=== PATIENT | female | born 1950 | race Caucasian/White ===

== ENCOUNTER 2022-01-09 21:06 | Inpatient (IN) | payer MEDICARE, OTHER ==
[~2022-01-09] VITALS: Ht 165.1 cm; Wt 49.9 kg
--- NOTE | 2022-01-09 21:48 | NUR ---
S/p fall in [employer], denies hitting head. Not on any blood thinner. Pt c/o left thigh pain and unable to put weight on her left foot. Seen and examined by Dr. Mckeon.
[2022-01-09] MEDS ORDERED: MORPHINE SULFATE 2 MG/1 ML DISP.SYRIN ONE ×2 (21:57→22:57)
[2022-01-09] MEDS ORDERED: MORPHINE SULFATE 2 MG/1 ML DISP.SYRIN IM ONE (22:00)
--- NOTE | 2022-01-09 22:28 | NUR ---
Paged Epic panel, waiting for Dr Yefri Arrieta to call back.
[2022-01-09 22:29] LABS: HEMATOCRIT 36.5 % (31.2-41.9); MEAN CORPUSCULAR HEMOGLOBIN 31.7 uug (24.7-32.8); MEAN CORPUSCULAR VOLUME 93.3 fL (75.5-95.3); PLATELET COUNT (AUTO) 341 K/uL (179-408)
[2022-01-09 22:36] LABS: CREATININE 0.9 mg/dL (0.6-1.3); POTASSIUM 4.1 mmol/L (3.5-5.1)
--- NOTE | 2022-01-09 22:36 | NUR ---
called lab to save the blue tube for PT/PTT. Pt will be admitted. Will ask Dr. Borden to add the orders.
[2022-01-09 22:42] LABS: BILIRUBIN,DIRECT 0.1 mg/dL (0.0-0.2); BILIRUBIN,TOTAL 0.5 mg/dL (0.2-1.0); TOTAL PROTEIN, SERUM 7.3 g/dL (6.4-8.2)
[2022-01-09] MEDS ORDERED: ONDANSETRON 4 MG/2 ML VIAL ONE (22:57)
[2022-01-09] MEDS ORDERED: MORPHINE SULFATE 2 MG/1 ML DISP.SYRIN IV ONE (23:00)
[2022-01-09] MEDS ORDERED: ONDANSETRON 4 MG/2 ML VIAL IV ONE (23:00)
[2022-01-10] MEDS ORDERED: MAGNESIUM HYDROXIDE 30 ML LIQUID UDC PO PRN (00:45)
[2022-01-10] MEDS ORDERED: ONDANSETRON 4 MG/2 ML VIAL IV PRN (00:45)
[2022-01-10] MEDS ORDERED: ACETAMINOPHEN 325 MG TABLET PO PRN (00:45)
[2022-01-10] MEDS ORDERED: HYDROMORPHONE 1 MG/1 ML DISP.SYRIN IV PRN (00:45)
[2022-01-10] MEDS ORDERED: IV NS 1000 ML 1,000 ML IV PRN (00:45)
[2022-01-10] MEDS ORDERED: REMEDY ESSENTIAL ZINC PASTE 113 GM TP PRN (00:45)
--- NOTE | 2022-01-10 01:09 | NUR ---
Pt has left hip fracture and needs a guerrero catheter per Dr. Mckeon.
[2022-01-10] MEDS ORDERED: ONDANSETRON 4 MG/2 ML VIAL ONE ×2 (02:01→10:00)
[2022-01-10] MEDS ORDERED: HYDROMORPHONE 1 MG/1 ML DISP.SYRIN ONE (02:01)
--- NOTE | 2022-01-10 05:03 | NUR ---
report given to Wendi at the floor.
--- NOTE | 2022-01-10 05:45 | NUR ---
Received patient from ER new admit per shaji, came at ER due to fall with DX s/p fall, Left Hip Fracture, not in respiratory distress, on room air, alert and oriented x3-4, routine admission care done. Complaint of pain at left Hip at tolerable level at this time 08/01 as stated by the patient. Transferred to bed and made comfortable. Left leg elevated with 1 pillow. Instructed on NPO, to be seen by ortho doctor for consultation
[2022-01-10] MEDS: HYDROMORPHONE 1 MG/1 ML DISP.SYRIN IV PRN ×3 (06:07→14:24)
[2022-01-10 06:33] VITALS: BP 131/47
[2022-01-10] MEDS ORDERED: KETOROLAC TROMETHAMINE 30 MG INJ ONE (10:00)
[2022-01-10] MEDS ORDERED: DEXAMETHASONE SOD PHOSPHATE 4 MG INJ ONE (10:00)
[2022-01-10] MEDS ORDERED: LIDOCAINE-MPF 2% 5 ML VIAL ONE (10:00)
[2022-01-10] MEDS ORDERED: PROPOFOL 200 MG/20 ML BOTTLE ONE (10:00)
[2022-01-10] MEDS ORDERED: GLYCOPYRROLATE 0.2 MG/ML VIAL ONE (10:00)
[2022-01-10] MEDS ORDERED: CEFAZOLIN 1 G VIAL ONE (10:00)
[2022-01-10] MEDS ORDERED: NEOSTIGMINE METHYLSULFATE 10 MG/10 ML VIAL ONE (10:00)
--- NOTE | 2022-01-10 11:36 | NUR ---
Pt is a/o x 3, no complaint of pain at this time. administered prn pain medication at [address] Crawford spoke with pt's daughter and pt and family are agreeable to having surgery done here. Surgery is scheduled for 1500 for left hip bipolar replacement. Procedure and blood consent signed by pt. Pt has been NPO status. IV patent and intact. Preop checklist completed, cardio cleared, pending echocardiogram. Comfort measures provided, call light within reach, will continue to monitor.
[2022-01-10 13:00] VITALS: BP 110/47
[2022-01-10] MEDS ORDERED: VANCOMYCIN 1000 MG VIAL ONE (16:04)
[2022-01-10 16:31] VITALS: BP 106/62
--- NOTE | 2022-01-10 16:45 | NUR ---
pt taken to OR for procedure. All personal belongings left inside room in drawer. guerrero emptied prior to transfer. 500cc yellow urine emptied.
[2022-01-10] MEDS ORDERED: ROCURONIUM BROMIDE 50 MG/5 ML VIAL ONE (16:59)
[2022-01-10] MEDS ORDERED: HYDROMORPHONE 2 MG/1 ML DISP.SYRIN ONE (16:59)
[2022-01-10] MEDS ORDERED: BUPIVACAINE/EPI PF 0.5% 10 ML VIAL ONE (18:18)
--- NOTE | 2022-01-10 20:20 | NUR ---
Pt came back from OR, left hip bipolar replacement. original dressing intact with steristrip, aquacel and tegaderm, abduction pillow in place. Weight-baring status pending on pt eval in the morning and Dr. Crawford's orders. Will endorse to follow up with MD in the morning. Pt to resume previous regular diet. medications faxed to pharmacy by OR staff. Pt last vitals 95/38 HR 67 temp 98.9 rr 10 SpO2 97% on room air. Fluids will be started as MD ordered. Will continue to monitor pt.
[2022-01-10] MEDS: POTASSIUM CHLORIDE 20 MEQ in IV D5 1/2 NS 1000 ML 1,000 ML IV PRN (21:00)
--- NOTE | 2022-01-10 22:30 | NUR ---
Assumed care of patient from JAMAR Leon. Received patient in bed. AAOx3-4. in no apparent distress. Denies any pain at this time. Abduction pillow in place. Incentive spirometer provided. Teaching done and states understanding. IV site on left AC intact and patent. IVF infusing. Melendrez catheter intact and draining via gravity. Needs assessed and attended to. Safety measure maintained.
--- NOTE | 2022-01-10 22:33 | NUR ---
Pt is a/o x 4, post op. Pt has been placed on fluids and provided snacks. Endorsed to place pt on heplock when regular diet tolerated and per personal assessment and monitoring as tolerated. placed order for PT eval post op, endorsed to follow up for weight-baring status. Comfort measures provided, call light within reach. Care transferred to Ly ROLDAN.
[2022-01-10] MEDS: MORPHINE SULFATE 2 MG/1 ML DISP.SYRIN IV PRN (23:39)
[2022-01-11] MEDS: CEFAZOLIN 1 G in IV DEXTROSE 5% 50 ML IV SCH ×2 (01:09→09:33)
[2022-01-11] MEDS: MORPHINE SULFATE 2 MG/1 ML DISP.SYRIN IV PRN ×6 (04:13→22:55)
[2022-01-11 05:16] VITALS: BP 100/45
--- NOTE | 2022-01-11 05:31 | NUR ---
In no apparent distress. Morphine 1mg via IV PRN given for complain of pain and effective. No adverse reaction noted from IV therapy. Abduction pillow in place. Melendrez catheter intact and draining via gravity. Needs attended to and met. Safety measure maintained and call light within reached.
[2022-01-11 07:20] LABS: HEMATOCRIT 27.4 % (31.2-41.9); MEAN CORPUSCULAR HEMOGLOBIN 32.2 uug (24.7-32.8); MEAN CORPUSCULAR VOLUME 93.4 fL (75.5-95.3); PLATELET COUNT (AUTO) 238 K/uL (179-408)
[2022-01-11 09:33] LABS: CARBON DIOXIDE 25 mmol/L (21-32); CHLORIDE 103 mmol/L (98-107); CREATININE 0.8 mg/dL (0.6-1.3); GLUCOSE 136 mg/dL (74-106); MAGNESIUM 1.8 mg/dL (1.8-2.4); PHOSPHOROUS 3.8 mg/dL (2.5-4.9); POTASSIUM 4.7 mmol/L (3.5-5.1); UREA NITROGEN, BLOOD 14 mg/dL (7-18)
[2022-01-11] MEDS: BENZOCAINE/MENTH/CETYLPYRD LOZENGE MM PRN ×2 (09:48→16:06)
[2022-01-11 10:35] VITALS: BP 96/61
[2022-01-11 12:00] VITALS: BP 101/49
[2022-01-11] MEDS: POTASSIUM CHLORIDE 20 MEQ in IV D5 1/2 NS 1000 ML 1,000 ML IV PRN (14:40)
[2022-01-11 16:00] VITALS: BP 109/41
[2022-01-11] MEDS: ENOXAPARIN SODIUM 40 MG/0.4 ML DISP.SYRIN SQ SCH (18:23)
[2022-01-11 20:27] VITALS: BP 120/47
[2022-01-12] MEDS: MORPHINE SULFATE 2 MG/1 ML DISP.SYRIN IV PRN ×6 (03:19→21:18)
[2022-01-12] MEDS: POTASSIUM CHLORIDE 20 MEQ in IV D5 1/2 NS 1000 ML 1,000 ML IV PRN (04:15)
[2022-01-12 04:33] VITALS: BP 121/46
[2022-01-12 07:13] LABS: HEMATOCRIT 28.3 % (31.2-41.9); MEAN CORPUSCULAR HEMOGLOBIN 32.8 uug (24.7-32.8); MEAN CORPUSCULAR VOLUME 92.9 fL (75.5-95.3); PLATELET COUNT (AUTO) 235 K/uL (179-408)
[2022-01-12 07:16] LABS: CARBON DIOXIDE 30 mmol/L (21-32); CHLORIDE 103 mmol/L (98-107); CREATININE 0.5 mg/dL (0.6-1.3); GLUCOSE 139 mg/dL (74-106); MAGNESIUM 1.9 mg/dL (1.8-2.4); POTASSIUM 4.2 mmol/L (3.5-5.1); UREA NITROGEN, BLOOD 9 mg/dL (7-18)
[2022-01-12] MEDS: ENOXAPARIN SODIUM 40 MG/0.4 ML DISP.SYRIN SQ SCH (08:39)
[2022-01-12 12:05] VITALS: BP 122/62
[2022-01-12] MEDS: ENSURE ENLIVE (VAN) 240 ML LIQUID PO SCH ×2 (13:18→16:37)
[2022-01-12 16:56] VITALS: BP 118/51
[2022-01-13] MEDS: MORPHINE SULFATE 2 MG/1 ML DISP.SYRIN IV PRN ×2 (02:07→08:59)
[2022-01-13 02:59] VITALS: BP 120/57
[2022-01-13 04:56] VITALS: BP 130/58
[2022-01-13 06:39] LABS: HEMATOCRIT 29.1 % (31.2-41.9); MEAN CORPUSCULAR HEMOGLOBIN 32.1 uug (24.7-32.8); MEAN CORPUSCULAR VOLUME 92.2 fL (75.5-95.3); PLATELET COUNT (AUTO) 249 K/uL (179-408)
[2022-01-13 07:04] LABS: CREATININE 0.6 mg/dL (0.6-1.3); POTASSIUM 3.9 mmol/L (3.5-5.1)
--- NOTE | 2022-01-13 07:15 | NUR ---
PER NOC RN ENDORSEMENT TALBOT CATH WAS DC'D, UPON SHIFT EXCHANGE ROUND, BLADDER IS SOFT AND NON DISTENDED, PATIENT DENIES ANY DISCOMFORT OR BLADDER PAIN, WILL CONTINUE TO MONITOR.
[2022-01-13 07:44] LABS: MAGNESIUM 1.9 mg/dL (1.8-2.4)
[2022-01-13] MEDS: ENOXAPARIN SODIUM 40 MG/0.4 ML DISP.SYRIN SQ SCH (08:55)
[2022-01-13] MEDS: ENSURE ENLIVE (VAN) 240 ML LIQUID PO SCH ×2 (08:58→13:20)
--- NOTE | 2022-01-13 08:59 | NUR ---
Late entry: PULLED MORPHINE 2MG AND WASTED 1mg UNDER [facility] ROMERO [id number], BUT 1MG WAS ADMINISTERED TO YAO CLAROS [id number].
[2022-01-13] MEDS ORDERED: DOCUSATE SODIUM 100 MG CAPSULE PO SCH (09:00)
[2022-01-13] MEDS ORDERED: MIRALAX 17 GM POWD.PACK PO SCH (09:00)
--- NOTE | 2022-01-13 13:01 | NUR ---
MID UPPER BACK, RIGHT SIDE OF SPINAL BONE SKIN SUPERFICIAL LAYER WITH MINIMAL SKIN SCRAPE, NO ACTIVE BLEEDING OR SWELLING NOTED. PATIENT DENIES PAIN. MD MADE AWARE, WOUND CONSULT INITIATED.
--- NOTE | 2022-01-13 14:29 | NUR ---
Discharged patient to [facility]hab as ordered. Belonging list signed. Instruction given, patient was noted with understanding. No distress identified. Incision site intact, no bleeding noted, with original dressing.
--- NOTE | 2022-01-13 14:37 | NUR ---
at 0900H, patient voided without difficulty/discomfort s/p fc removal from the car shifter.
[2022-01-13] MEDS ORDERED: APIX2.5T PO (15:41)
[2022-01-14] MEDS ORDERED: APIXABAN 2.5 MG TABLET PO SCH (09:00)
== END 2022-01-13 14:19 | DRG 522 ==
LOC: ER 21:06 → MEDSURG3 01-10 00:42
PROVIDERS: ADMIT Nurse Practitioner Family; ATTEND Nurse Practitioner Family
PROC: 0SRS0JZ Replacement of Left Hip Joint, Femoral Surface with Synthetic Substitute, Open Approach (ICD-10-PCS; principal; 2022-01-10)
DX: S72.032A Displaced midcervical fracture of left femur, initial encounter for closed fracture (principal); D72.829 Elevated white blood cell count, unspecified; F17.210 Nicotine dependence, cigarettes, uncomplicated; W18.30XA Fall on same level, unspecified, initial encounter; Y93.9 Activity, unspecified; Y92.009 Unspecified place in unspecified non-institutional (private) residence as the place of occurrence of the external cause; R73.9 Hyperglycemia, unspecified; Z20.822 Contact with and (suspected) exposure to COVID-19; Z96.641 Presence of right artificial hip joint
CPT/HCPCS: 36415; 51702; 71045; 72170; 73502; 73551; 83735; 84100; 85025; 85730; 93005; 93307; 97161; A4663; C1776; G0378; J0690; J1100; J1170; J1650; J1885; J2270; J2405; J3370; J3480; J3490; J7040

== ENCOUNTER 2022-01-13 14:55 | Inpatient (IN) | payer MEDICARE, OTHER ==
[~2022-01-13] VITALS: Ht 165.1 cm; Wt 46.3 kg
[2022-01-13] MEDS ORDERED: REMEDY ESSENTIAL ZINC PASTE 113 GM TOP PRN (15:15)
[2022-01-13] MEDS ORDERED: APIX2.5T PO (15:41)
[2022-01-13] MEDS ORDERED: ONDANSETRON ODT 4 MG TAB.RAPDIS SL PRN (15:45)
[2022-01-13] MEDS: DOCUSATE SODIUM 100 MG CAPSULE PO SCH ×2 (17:12→20:23)
[2022-01-13] MEDS: HYDROCODONE/APAP 10-325 MG TABLET PO PRN ×2 (17:14→22:50)
[2022-01-13 17:31] VITALS: BP 110/45
--- NOTE | 2022-01-13 18:21 | NUR ---
PATIENT UNDER ARU, ALERT,OX4, VERBALIZES NEEDS AND FOLLOWS DIRECTIONS. MEDICATED PRN WITH NORCO 10/325MG PER HER PAIN NEEDS/ ORDERED BY MD. AND EFFECTIVE, PATIENT IS CURRENTLY IN BED RESTING COMFORTABLY, ALL SAFETY PRECAUTIONS IN PLACE, CALL LIGHT AT REACH., ROUTINE ROUNDS AND FREQUENT VISUAL CHECKS DONE. ALL NEEDS ANTICIPATED AND MET.
[2022-01-13 20:00] VITALS: BP 121/57
[2022-01-14 04:00] VITALS: BP 108/45
[2022-01-14] MEDS: HYDROCODONE/APAP 10-325 MG TABLET PO PRN ×3 (05:12→17:38)
[2022-01-14 07:54] VITALS: BP 102/40
[2022-01-14] MEDS: APIXABAN 2.5 MG TABLET PO SCH ×2 (08:41→21:32)
[2022-01-14] MEDS: DOCUSATE SODIUM 100 MG CAPSULE PO SCH ×2 (08:42→21:28)
[2022-01-14] MEDS: MIRALAX 17 GM POWD.PACK PO SCH (08:42)
--- NOTE | 2022-01-14 12:00 | NUR ---
Weight bearing status confirmed with Dr. Crawford, order for WBAT noted and carried out, PT department made aware.
--- NOTE | 2022-01-14 12:52 | NUR ---
WOUND CARE CONSULT: PT REFUSED SKIN ASSESSMENT. REVIEWED CHART, NURSING DOCUMENTATION AND PHOTO WHICH INDICATES UPPER/MID BACK AREA OF DISCOLORATION, PRESENT ON ADMISSION, UNKNOWN ETIOLOGY. RECOMMENDATIONS MADE FOR SKIN PROTECTION BASED ON PHOTO AND DISCUSSED WITH NURSING STAFF. WILL SEE PT PT CONDITION PERMITS. MD IN AGREEMENT WITH PLAN OF CARE.
[2022-01-14 15:22] VITALS: BP 105/49
[2022-01-14 20:00] VITALS: BP 114/47
[2022-01-15] MEDS: HYDROCODONE/APAP 10-325 MG TABLET PO PRN ×4 (00:12→20:39)
[2022-01-15 04:00] VITALS: BP 115/52
[2022-01-15 08:04] VITALS: BP 106/51
[2022-01-15] MEDS: DOCUSATE SODIUM 100 MG CAPSULE PO SCH ×2 (08:35→21:56)
[2022-01-15] MEDS: MIRALAX 17 GM POWD.PACK PO SCH (08:35)
[2022-01-15] MEDS: MAGNESIUM HYDROXIDE 30 ML LIQUID UDC PO PRN (08:43)
[2022-01-15] MEDS: APIXABAN 2.5 MG TABLET PO SCH ×2 (08:49→21:58)
--- NOTE | 2022-01-15 14:01 | NUR ---
INTERDISCIPLINARY TEAM CONFERENCE
[2022-01-15] MEDS: PROTEIN SUPPLEMENT (PROSTAT) 30 ML LIQUID PO SCH (14:59)
[2022-01-15] MEDS: GLUCERNA SHAKE 237 ML CAN PO SCH ×2 (14:59→16:58)
[2022-01-15 16:03] VITALS: BP 111/53
[2022-01-15 20:00] VITALS: BP 106/43
[2022-01-16] MEDS: HYDROCODONE/APAP 10-325 MG TABLET PO PRN ×2 (02:32→08:25)
--- NOTE | 2022-01-16 02:47 | NUR ---
MEDICATED WITH NORCO ORDERED FOR POST OP PAIN, RELIEF AFFORDED, UP TO BR W/ MIN ASSIST, VOIDED FREELY WELL.SLEPT AT SHORT INTERVALS.
[2022-01-16 07:10] LABS: MEAN CORPUSCULAR HEMOGLOBIN 31.8 uug (24.7-32.8); MEAN CORPUSCULAR VOLUME 92.6 fL (75.5-95.3); PLATELET COUNT (AUTO) 399 K/uL (179-408)
[2022-01-16 07:33] LABS: THYROID STIMULATING HORMONE 1.796 mIU/mL (0.358-3.740)
[2022-01-16 07:52] LABS: BILIRUBIN,TOTAL 0.6 mg/dL (0.2-1.0); CREATININE 0.7 mg/dL (0.6-1.3); MAGNESIUM 2.2 mg/dL (1.8-2.4); PHOSPHOROUS 3.9 mg/dL (2.5-4.9); POTASSIUM 4.8 mmol/L (3.5-5.1); TOTAL PROTEIN, SERUM 6.8 g/dL (6.4-8.2)
[2022-01-16 08:00] VITALS: BP 101/50
[2022-01-16] MEDS: MIRALAX 17 GM POWD.PACK PO SCH (08:25)
[2022-01-16] MEDS: MAGNESIUM HYDROXIDE 30 ML LIQUID UDC PO PRN (08:25)
[2022-01-16] MEDS: DOCUSATE SODIUM 100 MG CAPSULE PO SCH ×2 (08:25→20:35)
[2022-01-16] MEDS: GLUCERNA SHAKE 237 ML CAN PO SCH ×2 (08:30→17:01)
[2022-01-16] MEDS: PROTEIN SUPPLEMENT (PROSTAT) 30 ML LIQUID PO SCH (08:30)
[2022-01-16] MEDS: APIXABAN 2.5 MG TABLET PO SCH ×2 (08:30→20:35)
[2022-01-16] MEDS ORDERED: NALOXONE HCL 0.4 MG/ML AMPUL IV PRN (11:00)
--- NOTE | 2022-01-16 11:24 | NUR ---
INDIVIDUALIZED PLAN OF CARE
[2022-01-16] MEDS: OXYCODONE HCL 10 MG TAB.SR.12H PO SCH ×2 (12:27→20:35)
[2022-01-16 15:38] VITALS: BP 112/50
[2022-01-16 20:00] VITALS: BP 105/54
[2022-01-17 04:00] VITALS: BP 119/47
[2022-01-17 07:41] VITALS: BP 110/25
[2022-01-17] MEDS: OXYCODONE HCL 10 MG TAB.SR.12H PO SCH ×2 (08:26→20:57)
[2022-01-17] MEDS: DOCUSATE SODIUM 100 MG CAPSULE PO SCH ×2 (08:26→20:56)
[2022-01-17] MEDS: APIXABAN 2.5 MG TABLET PO SCH ×2 (08:27→21:02)
[2022-01-17] MEDS: MIRALAX 17 GM POWD.PACK PO SCH (08:28)
[2022-01-17] MEDS: PROTEIN SUPPLEMENT (PROSTAT) 30 ML LIQUID PO SCH (08:28)
[2022-01-17] MEDS: GLUCERNA SHAKE 237 ML CAN PO SCH ×2 (08:28→17:43)
[2022-01-17 16:14] VITALS: BP 111/57
[2022-01-17] MEDS: HYDROCODONE/APAP 10-325 MG TABLET PO PRN (18:21)
[2022-01-17 20:00] VITALS: BP 109/46
[2022-01-18 04:25] VITALS: BP 103/46
--- NOTE | 2022-01-18 05:10 | NUR ---
Slept well, not in distress, in fair condition. BAle to ambulate to the bathroom with walker.
[2022-01-18] MEDS: HYDROCODONE/APAP 10-325 MG TABLET PO PRN (06:20)
[2022-01-18] MEDS: OXYCODONE HCL 10 MG TAB.SR.12H PO SCH ×2 (08:04→20:41)
[2022-01-18] MEDS: DOCUSATE SODIUM 100 MG CAPSULE PO SCH ×2 (08:05→20:41)
[2022-01-18] MEDS: MIRALAX 17 GM POWD.PACK PO SCH (08:05)
[2022-01-18] MEDS: PROTEIN SUPPLEMENT (PROSTAT) 30 ML LIQUID PO SCH (08:06)
[2022-01-18] MEDS: APIXABAN 2.5 MG TABLET PO SCH ×2 (08:06→20:44)
[2022-01-18] MEDS: GLUCERNA SHAKE 237 ML CAN PO SCH ×2 (08:08→16:18)
[2022-01-18 08:30] VITALS: BP 109/50
[2022-01-18 16:17] VITALS: BP 103/47
[2022-01-18 20:00] VITALS: BP 117/43
--- NOTE | 2022-01-19 01:49 | NUR ---
AAOx4 Needs attended. Patient had a left hip fracture. Patient s/p left hip bipolar replacement (01/09) by Dr Crawford. VSS Needs attended. Kept comfortable. Tolerated po meds well. Denies any pain at this time. Fall precautions maintained. Will monitor patient.
[2022-01-19 04:00] VITALS: BP 115/42
[2022-01-19 05:43] VITALS: BP 115/62
[2022-01-19] MEDS: APIXABAN 2.5 MG TABLET PO SCH ×2 (07:59→20:44)
[2022-01-19] MEDS: OXYCODONE HCL 10 MG TAB.SR.12H PO SCH ×2 (07:59→20:43)
[2022-01-19] MEDS: DOCUSATE SODIUM 100 MG CAPSULE PO SCH ×2 (07:59→21:25)
[2022-01-19] MEDS: MIRALAX 17 GM POWD.PACK PO SCH (08:00)
[2022-01-19] MEDS: GLUCERNA SHAKE 237 ML CAN PO SCH ×2 (08:00→13:17)
[2022-01-19] MEDS: PROTEIN SUPPLEMENT (PROSTAT) 30 ML LIQUID PO SCH (08:00)
[2022-01-19] MEDS: MULTIVITAMINS,THERAPEUTIC TABLET PO SCH (08:00)
[2022-01-19 12:25] VITALS: BP 129/57
[2022-01-19] MEDS: DOXYCYCLINE HYCLATE 100 MG TABLET PO SCH ×2 (13:19→20:45)
[2022-01-19 16:16] VITALS: BP 116/49
[2022-01-19 20:00] VITALS: BP 117/54
[2022-01-20 04:00] VITALS: BP 108/47
[2022-01-20] MEDS: DOXYCYCLINE HYCLATE 100 MG TABLET PO SCH ×2 (08:49→21:03)
[2022-01-20] MEDS: OXYCODONE HCL 10 MG TAB.SR.12H PO SCH ×2 (08:49→21:03)
[2022-01-20] MEDS: MULTIVITAMINS,THERAPEUTIC TABLET PO SCH (08:49)
[2022-01-20] MEDS: DOCUSATE SODIUM 100 MG CAPSULE PO SCH ×2 (08:49→21:00)
[2022-01-20] MEDS: APIXABAN 2.5 MG TABLET PO SCH ×2 (08:50→21:02)
[2022-01-20] MEDS: PROTEIN SUPPLEMENT (PROSTAT) 30 ML LIQUID PO SCH (08:51)
[2022-01-20] MEDS: GLUCERNA SHAKE 237 ML CAN PO SCH ×2 (08:51→17:12)
[2022-01-20] MEDS: MIRALAX 17 GM POWD.PACK PO SCH (08:54)
--- NOTE | 2022-01-20 09:00 | NUR ---
Patient is alert, oriented x 4, ambulatory with walker, not in any form of distress on room air. She is compliant with medications and care. Assisted with her needs. Call light and frequently used items placed within patient's reach.
--- NOTE | 2022-01-20 11:15 | NUR ---
WOUND CARE CONSULT: PT PRESENTS WITH LESIONS TO LEFT SIDE OF BACK AND ONE DRY LESION TO RT SIDE OF BACK, UNKNOWN ETIOLOGY. DR BURRIS NOTIFIED OF SURGICAL CONSULT REQUEST. PT IS INDEPENDENT WITH BED MOBILITY. MD IN AGREEMENT WITH PLAN OF CARE.
[2022-01-20 12:39] VITALS: BP 105/43
[2022-01-20 16:42] VITALS: BP 110/45
[2022-01-20 20:00] VITALS: BP 102/48
[2022-01-20] MEDS: MUPIROCIN 2% OINT 22 GM TUBE TP SCH (21:05)
[2022-01-21 04:00] VITALS: BP 116/52
[2022-01-21 08:20] VITALS: BP 115/50
[2022-01-21] MEDS: DOXYCYCLINE HYCLATE 100 MG TABLET PO SCH ×2 (09:34→21:05)
[2022-01-21] MEDS: DOCUSATE SODIUM 100 MG CAPSULE PO SCH ×2 (09:34→20:55)
[2022-01-21] MEDS: MULTIVITAMINS,THERAPEUTIC TABLET PO SCH (09:34)
[2022-01-21] MEDS: GLUCERNA SHAKE 237 ML CAN PO SCH ×2 (09:35→18:25)
[2022-01-21] MEDS: MIRALAX 17 GM POWD.PACK PO SCH (09:35)
[2022-01-21] MEDS: OXYCODONE HCL 10 MG TAB.SR.12H PO SCH ×2 (09:35→21:05)
[2022-01-21] MEDS: PROTEIN SUPPLEMENT (PROSTAT) 30 ML LIQUID PO SCH (09:36)
[2022-01-21] MEDS: MUPIROCIN 2% OINT 22 GM TUBE TP SCH ×2 (09:37→21:06)
[2022-01-21] MEDS: APIXABAN 2.5 MG TABLET PO SCH ×2 (09:42→21:04)
[2022-01-21 15:21] VITALS: BP 110/48
--- NOTE | 2022-01-21 19:00 | NUR ---
RECD PT IN BED,RESTING QUIETLY, NO ACUTE DISTRESS NOTED.
--- NOTE | 2022-01-21 20:00 | NUR ---
SEEN BY INF.DISEASE NURSE,[id number],ASCERTAINED POSTULAR RASHES ON BACK, ADVISED TO KEEP OPEN TO AIR AND DO NOT SLEEP ON HER BACK MUCH POSSIBLE.DUE MEDS GIVEN,
[2022-01-21 21:43] VITALS: BP 114/52
[2022-01-21 22:16] VITALS: BP 114/52
--- NOTE | 2022-01-22 03:35 | NUR ---
SLEPT INTERMITTENTLY, UP TO BR.PHOTOS OF POSTULAR RASHES ON BACK TAKEN.
[2022-01-22 06:57] VITALS: BP 117/43
[2022-01-22 07:49] VITALS: BP 109/47
[2022-01-22] MEDS: DOCUSATE SODIUM 100 MG CAPSULE PO SCH ×2 (08:48→21:42)
[2022-01-22] MEDS: PROTEIN SUPPLEMENT (PROSTAT) 30 ML LIQUID PO SCH (08:48)
[2022-01-22] MEDS: GLUCERNA SHAKE 237 ML CAN PO SCH ×2 (08:48→17:04)
[2022-01-22] MEDS: OXYCODONE HCL 10 MG TAB.SR.12H PO SCH ×2 (08:48→21:40)
[2022-01-22] MEDS: MUPIROCIN 2% OINT 22 GM TUBE TP SCH ×2 (08:49→21:37)
[2022-01-22] MEDS: MIRALAX 17 GM POWD.PACK PO SCH (08:49)
[2022-01-22] MEDS: MULTIVITAMINS,THERAPEUTIC TABLET PO SCH (08:49)
[2022-01-22] MEDS: DOXYCYCLINE HYCLATE 100 MG TABLET PO SCH ×2 (08:49→21:40)
[2022-01-22] MEDS: APIXABAN 2.5 MG TABLET PO SCH ×2 (08:49→21:41)
[2022-01-22 15:17] VITALS: BP 110/55
--- NOTE | 2022-01-22 15:29 | NUR ---
INTERDISCIPLINARY TEAM CONFERENCE
--- NOTE | 2022-01-22 18:42 | NUR ---
No acute changes during the shift. Photo taken on the incision site, clean, dry, no infection identified. will endorse to the next shift for continuity of care.
[2022-01-22 20:00] VITALS: BP 110/55
--- NOTE | 2022-01-23 03:22 | NUR ---
LOOKING FORWARD TO HER DISCHARGE IN AM.
[2022-01-23 04:00] VITALS: BP 104/47
--- NOTE | 2022-01-23 07:08 | NUR ---
UNEVENTFUL NITE, CONTINENT OF BOTH BOWEL AND BLADDER.ENDORSED TO AM NURSE IN FAIR CONDITION.
[2022-01-23 08:00] VITALS: BP 105/55
[2022-01-23 08:08] VITALS: BP 105/55
[2022-01-23] MEDS: DOXYCYCLINE HYCLATE 100 MG TABLET PO SCH (08:41)
[2022-01-23] MEDS: DOCUSATE SODIUM 100 MG CAPSULE PO SCH (08:41)
[2022-01-23] MEDS: MIRALAX 17 GM POWD.PACK PO SCH (08:41)
[2022-01-23] MEDS: MULTIVITAMINS,THERAPEUTIC TABLET PO SCH (08:41)
[2022-01-23] MEDS: MUPIROCIN 2% OINT 22 GM TUBE TP SCH (08:42)
[2022-01-23] MEDS: OXYCODONE HCL 10 MG TAB.SR.12H PO SCH (08:42)
[2022-01-23] MEDS: GLUCERNA SHAKE 237 ML CAN PO SCH (08:42)
[2022-01-23] MEDS: PROTEIN SUPPLEMENT (PROSTAT) 30 ML LIQUID PO SCH (08:42)
[2022-01-23] MEDS: APIXABAN 2.5 MG TABLET PO SCH (08:51)
--- NOTE | 2022-01-23 12:35 | NUR ---
Received an order from Dr. Craft for discharge to home with PT, OT an Addendum: 01/23/22 at 1236 by JULIANA SCHULTE RN RN continuation: and nursing services.
[2022-01-23 16:01] VITALS: BP 112/49
--- NOTE | 2022-01-23 16:20 | NUR ---
Discharge instructions provided to the patient with verbalized understanding. Discharge papers signed by and given to the patient. CD of X-Ray of hip also provided. All belongings well accounted for. Patient remains alert, oriented x 4, not in any form of distress, on room air. She denies any pain or discomfort. Vital signs stable. Assisted with her needs. Patient picked by [facility] transferred via gurney.
== END 2022-01-23 16:05 | disposition home health service (06) | DRG 560 ==
PROVIDERS: ADMIT Physical Medicine & Rehabilitation Pain Medicine; ATTEND Physical Medicine & Rehabilitation Pain Medicine
DX: S72.032D Displaced midcervical fracture of left femur, subsequent encounter for closed fracture with routine healing (principal); Z68.1 Body mass index [BMI] 19.9 or less, adult; R73.9 Hyperglycemia, unspecified; Z96.643 Presence of artificial hip joint, bilateral; W18.30XD Fall on same level, unspecified, subsequent encounter; D64.9 Anemia, unspecified; F17.210 Nicotine dependence, cigarettes, uncomplicated; R53.1 Weakness; L25.9 Unspecified contact dermatitis, unspecified cause; R73.03 Prediabetes; Z79.01 Long term (current) use of anticoagulants; Z80.3 Family history of malignant neoplasm of breast; R63.6 Underweight
CPT/HCPCS: 36415; 73502; 83735; 84100; 84443; 85025; 97161; 97535-GO-CO; A4663; A6209